=== PATIENT | male | born 1990 | race Caucasian/White ===

== ENCOUNTER 2021-03-16 13:14 | Emergency (ER) | payer OTHER ==
[~2021-03-16] VITALS: Ht 193 cm; Wt 102.4 kg
[2021-03-16 13:23] VITALS: BP 158/81
--- NOTE | 2021-03-16 13:43 | PHYS DOC ---
Past History Past Surgical History: Appendectomy, Other Additional Past Surgical Histo: hernia repair General Adult EDM: Chief Complaint: EARACHE/EAR PAIN HPI: HPI: Patient is a 30-year-old male coming in for right ear pain. Patient states the pain started about 2 hours prior to arrival. Patient states he used a Q-tip to clean his ear earlier this morning and the pain started a few hours after that. Denies any discharge, hearing loss or tinnitus. Denies any sudden onset of symptoms this is gradually gotten worse. No significant history of ear infections Review of Systems: Review of Systems: All other systems within normal limits except for as noted in the HPI Physical Exam: PE: Constitutional: Well developed, well nourished, no acute distress, non-toxic appearance. [] HENT: Normocephalic, atraumatic, bilateral external ears normal, nose normal. No mastoid tenderness or bogginess. Right ear erythema and mild debris in the canal, mild canal edema, visualized portion of the TM is not erythematous or injected, nonbulging. No drainage in the canal. Pain with movement of external ear [] Eyes: PERRLA, conjunctiva normal, no discharge. [] Neck: No rigidity, supple, no stridor. [] Cardiovascular: Regular rate and rhythm, brisk cap refill [] Lungs & Thorax: Non labored symmetric respirations, no tachypnea or respiratory distress [] Abdomen: Soft, nondistended. Skin: Warm, dry, no erythema, no rash. [] Back: Unremarkable Extremities: No deformities, range of motion grossly intact, no lower extremity edema [] Neurologic: Alert and oriented X 3, no focal deficits noted. [] Psychologic: Affect normal, judgement normal, mood normal. [] Current Patient Data: Vital Signs: Vital Signs Date Time Temp Pulse Resp B/P (MAP) Pulse Ox O2 Delivery O2 Flow Rate FiO2 03/16/21 13:23 98.2 100 18 158/81 (106) 100 EKG: EKG: [] Radiology/Procedures: Radiology/Procedures: [] Heart Score: C/O Chest Pain: No Risk Factors: Risk Factors: DM, Current or recent (<one month) smoker, HTN, HLP, family history of CAD, obesity. Risk Scores: Score 0 - 3: 2.5% MACE over next 6 weeks - Discharge Home Score 4 - 6: 20.3% MACE over next 6 weeks - Admit for Clinical Observation Score 7 - 10: 72.7% MACE over next 6 weeks - Early Invasive Strategies Course & Med Decision Making: Course & Med Decision Making We will treat with Corticosporin suspension due to being unable to visualize the entire TM. Although patient's presentation and symptoms is unlikely that there is a TM rupture. Dragon Disclaimer: Dragon Disclaimer: This electronic medical record was generated, in whole or in part, using a voice recognition dictation system. Departure Departure: Impression: Primary Impression: Right otitis externa Disposition: HOME / SELF CARE / HOMELESS Condition: STABLE Referrals: PCP,OSVALDO (PCP) Patient Instructions: Otitis Externa Additional Instructions: Instill 4 drops of antibiotics in right ear every 8 hours for 7 days. Follow-up with otolaryngology if symptoms not resolving. You may contact your primary care provider or contact Alton Ruelas DO [address] [place] [id number] ALLISON MORRIS MD Mar 16, 2021 13:43
[2021-03-16] MEDS ORDERED: IBUPROFEN 800 MG TABLET. PO ONE (13:45)
[2021-03-16] MEDS ORDERED: NEOMYCIN/POLYMYXIN/HC OTIC SUSPENSION 10ML BOTTLE. AD ONE (13:45)
== END 2021-03-16 14:05 | disposition home or self-care (01) ==
LOC: ER 13:14
DX: H60.91 Unspecified otitis externa, right ear (principal)
CPT/HCPCS: 99283

== ENCOUNTER 2021-03-21 14:02 | Emergency (ER) | payer OTHER ==
[~2021-03-21] VITALS: Ht 193 cm; Wt 102.4 kg
[2021-03-21 14:27] VITALS: BP 163/78
--- NOTE | 2021-03-21 16:20 | PHYS DOC ---
Past History Past Surgical History: Appendectomy, Other Additional Past Surgical Histo: hernia repair (CHIVO BENJAMIN APRN) Alcohol Use: None (CHIVO BENJAIMN APRN) Adult General Chief Complaint Chief Complaint: EARACHE/EAR PAIN HPI HPI Patient is a 30-year-old male presents emergency department complaining of decreased hearing sensation of the right ear for the past 2 days. Patient reports last week he was seen here after scratching his right ear canal with a plastic Q-tip, reports was started on Cortisporin eardrops has been taking as directed, however has not followed up with an ENT specialist or his primary care provider. Patient denies visual disturbances, dizziness, syncopal or near synco pal episodes. Denies recent fever or chills. Patient has return for reevaluation of this. (CHIVO BENJAMIN APRN) Review of Systems Review of Systems 14 body systems of review of systems have been reviewed. See HPI for pertinent positives and negative responses, otherwise all other systems are negative, nonpertinent or noncontributory. Constitutional: Negative except as outlined in HPI above. Skin: Negative except as outlined in HPI above. Eyes: Negative except as outlined in HPI above. HENT: Negative except as outlined in HPI above. Respiratory: Negative except as outlined in HPI above. Cardiovascular: Negative except as outlined in HPI above. GI: Negative except as outlined in HPI above. : Negative except as outlined in HPI above. Musculoskeletal: Negative except as outlined in HPI above. Integument: Negative except as outlined in HPI above. Neurologic: Negative except as outlined in HPI above. Endocrine: Negative except as outlined in HPI above. Lymphatic: Negative except as outlined in HPI above. Psychiatric: Negative except as outlined in HPI above. (CHIVO BENJAMIN APRN) Allergies Allergies Allergies Coded Allergies Type Severity Reaction Last Updated Verified No Known Drug Allergies 03/16/21 No (CHIVO BENJAMIN APRN) Physical Exam Physical Exam Constitutional: Well developed, well nourished, no acute distress, non-toxic appearance. 30-year-old male in no apparent distress. HENT: Normocephalic, atraumatic. Left TM intact within normal limits right TM intact, opaque TM unable to appreciate bony landmarks, external auditory canal n ondrainage nonerythematous and within normal limits. No lymphadenopathy of the head or neck appreciated, no erythema or deep tissue infectious process of the oropharynx appreciated. Eyes: Conjunctiva normal, no discharge. Neck: Normal range of motion, no stridor. Cardiovascular: No cyanosis appreciated, distal cap refill less than 2 seconds. Lungs & Thorax: Patient is in no respiratory distress, no audible adventitious lung sounds appreciated. Abdomen: Nontender, no abnormalities noted. Skin: Warm, dry, no erythema, no rash. Back: No tenderness, no deformities. Extremities: No tenderness, no cyanosis, no clubbing, ROM intact, no edema. Neurologic: Alert and oriented X 3, normal motor function, normal sensory function, no focal deficits noted. Psychologic: Affect normal, judgement normal, mood normal. (CHIVO BENJAMIN APRN) Current Patient Data Vital Signs Vital Signs Date Time Temp Pulse Resp B/P (MAP) Pulse Ox O2 Delivery O2 Flow Rate FiO2 03/21/21 14:27 97.9 96 16 163/78 (106) 98 Room Air (CHIVO BENJAMIN APRN) EKG EKG [] (CHIVO BENJAMIN APRN) Radiology/Procedures Radiology/Procedures [] (CHIVO BENJAMIN APRN) Heart Score C/O Chest Pain: No Risk Factors: Risk Factors: DM, Current or recent (<one month) smoker, HTN, HLP, family history of CAD, obesity. Risk Scores: Risk Factors: DM, Current or recent (<one month) smoker, HTN, HLP, family history of CAD, obesity. (CHIVO BENJAMIN APRN) Course & Med Decision Making Course & Med Decision Making Pertinent Labs and Imaging studies reviewed. (See chart for details) 30-year-old male, vital signs reviewed, presents to the emergency department concerning decreased hearing to the right ear for the past 2 days. Patient was seen here last week for auditory external canal trauma, was started on Cortisporin drops, reports has been using as directed. Physical examination concerning for external otitis externa, will irrigate right ear canal and reexamined. Right external auditory canal irrigated by ED nursing staff, patient reports no change in hearing sensation. Visual exam no changes, unable to see bony landmarks to the right ear. The tympanic membrane remains intact. 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 This is a must. Patient gave verbal understanding of and is amenable to ED discharge planning. Discussed with the patient all findings and diagnostic testing as well as the need to follow-up with their primary care provider for further evaluation and treatment or return to the ED if any new or worsening symptoms. Strict return precautions were also discussed at length, the patient voiced understanding and agreement with the discharge planning. The patient was nontoxic in appearance, in no apparent distress, and hemodynamically stable at the time of disposition. (CHIVO BENJAMIN APRN) Course & Med Decision Making I was the Attending physician on the above date of service of this patient. This patient was evaluated, examined, treated, and dispositioned from the emergency department by the mid-level practitioner. Although I was working at the time , no assistance was requested. Electronically signed, Natalie Berry DO (NATALIE BERRY DO) Leda Disclaimer Dragon Disclaimer This electronic medical record was generated, in whole or in part, using a voice recognition dictation system. (CHIVO BENJAMIN APRN) Departure Departure: Impression: Primary Impression: Right otitis externa Disposition: HOME / SELF CARE / HOMELESS Condition: GOOD Referrals: PCP,NO (PCP) Additional Instructions: You are seen today in the emergency department for decreased hearing of the right ear. You are currently on a eardrop medication regimen, your ear was irrigated today in the emergency department, please continue to use the eardrop medication as directed, please follow-up with an ENT specialist on the [facility] base call tomorrow for an appointment, this is a must. Please follow-up with your primary care physician on the [facility]-based tomorrow. Return to the emergency department for worsening symptoms or other concerns. Thank you for visiting our Emergency Department. It was a pleasure taking care of you today in the emergency department and we appreciate you trusting us with your care. If any additional problems come up don't hesitate to return to visit us. Please follow up with your primary care provider so they can plan additional care if needed and know about the problem that you had. If symptoms worsen come back to the Emergency Department. Any concerning symptoms that start such as chest pain, shortness of air, weakness or numbness on one side of the body, running high fevers or any other concerning symptoms return to the ER. Problem Qualifiers Primary Impression: Right otitis externa Otitis externa type: unspecified type Chronicity: unspecified Qualified Codes: H60.91 - Unspecified otitis externa, right ear CHIVO BENJAMIN APRN Mar 21, 2021 16:20 NATALIE BERRY DO Mar 22, 2021 07:55
== END 2021-03-21 16:20 | disposition home or self-care (01) ==
LOC: ER 14:02
DX: H60.91 Unspecified otitis externa, right ear (principal)
CPT/HCPCS: 99282